=== PATIENT | male | born 1960 | race Caucasian/White ===

== ENCOUNTER 2019-08-31 13:43 | Outpatient (CLI) | payer OTHER, SELFPAY ==
--- NOTE | ~2019-08-31 | CT_ITS ---
EXAMINATION:CT lung screening DATE: 08/31/2019 14:06 INDICATION: Personal history of tobacco dependence. Smoker who quit in 2018 with 30 pack year history . TECHNIQUE: Computed tomography (CT) of the chest was performed without intravenous contrast. Automate d exposure control and iterative reconstruction technique were employed. The dose-length product (DLP ) was 88.54 mGy-cm. COMPARISON: Chest CT 03/08/2018 FINDINGS: There are reticular opacities, groundglass opacities, and nodules measuring up to 4 mm in t he upper lobes without change, consistent with scarring. A calcified left lung nodule is consistent w ith old granulomatous disease. No pleural effusion. The heart size is normal. No pericardial effusion . There is mild thoracic spondylosis. There is mild chronic anterior wedging of T10 and T11 vertebral bodies. IMPRESSION: 1. Lung-RADS category 2: Benign appearance or behavior. Continue annual screening with noncontrast lo w-dose chest CT in 12 months. Reviewed, dictated and finalized at location A. 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 Lung-RADS category 2: Benign appearance or behavior. Continue annual screeni ng with noncontrast low-dose chest CT in 12 months.
== END 2019-08-31 13:44 | disposition home or self-care (01) ==
LOC: ANHIMG 13:46
PROVIDERS: PCP Internal Medicine; Visit Provider Internal Medicine
DX: Z12.2 Encounter for screening for malignant neoplasm of respiratory organs (principal); Z87.891 Personal history of nicotine dependence
CPT/HCPCS: G0297

== ENCOUNTER → 2021-02-11 08:57 | Outpatient (CLI) | payer OTHER, SELFPAY ==
--- NOTE | ~2021-02-11 | CT_ITS ---
EXAMINATION: CT lung screening DATE: 02/11/2021 09:31 INDICATION: Personal history of tobacco dependence TECHNIQUE: Computed tomography (CT) of the chest was performed without intravenous contrast. The dose -length product was 120.59 mGy-cm. Automated exposure control and iterative reconstruction technique were employed. COMPARISON: CT dated 08/31/2019 FINDINGS: No thoracic lymphadenopathy. Heart size normal. Small hiatal hernia. No significant pleural or pericardial effusion. The upper abdomen is unremarkable. Stable scattered predominantly upper lob e nodules with areas of reticular nodularity. Pulmonary nodules measure 4 mm or less. No new pulmonar y nodules or masses. Mild thoracic spondylosis with scoliosis. Anterior wedging of T10 and T11. IMPRESSION: 1. Lung-RADS category 2: Benign appearance or behavior. Continue annual screening with noncontrast lo w-dose chest CT in 12 months. Reviewed, dictated and finalized at location A. IMPRESSION: 1. Lung-RADS category 2: Benign appearance or behavior. Continue annual screeni ng with noncontrast low-dose chest CT in 12 months.
== END ==
PROVIDERS: PCP Internal Medicine; Visit Provider Internal Medicine
DX: Z87.891 Personal history of nicotine dependence (principal)
CPT/HCPCS: 71271

== ENCOUNTER → 2022-02-12 10:42 | Outpatient (CLI) | payer OTHER, SELFPAY ==
--- NOTE | ~2022-02-12 | CT_ITS ---
EXAMINATION: CT lung screening DATE: 02/12/2022 10:58 INDICATION: Personal history of tobacco dependence TECHNIQUE: Computed tomography (CT) of the chest was performed without intravenous contrast. The dose -length product was 107.69 mGy-cm. COMPARISON: CT dated 02/11/2021 FINDINGS: Heart size normal. No thoracic lymphadenopathy. No significant pleural or pericardial effus ion. Upper abdomen is unremarkable. Mild thoracic spondylosis. There are multiple bilateral predominantly upper lobe nodules measuring 4 mm or less without signific ant change from prior examination allowing for differences of technique. There is emphysema. There ar e stable groundglass opacities in the right upper lobe. No endobronchial lesions. No pneumothorax. No acute osseous abnormality. IMPRESSION: 1. Lung-RADS category 2: Benign appearance or behavior. Continue annual screening with noncontrast lo w-dose chest CT in 12 months. Reviewed, dictated and finalized at location L. IMPRESSION: 1. Lung-RADS category 2: Benign appearance or behavior. Continue annual screeni ng with noncontrast low-dose chest CT in 12 months.
== END ==
PROVIDERS: PCP Internal Medicine; Visit Provider Internal Medicine
DX: Z12.2 Encounter for screening for malignant neoplasm of respiratory organs (principal); Z87.891 Personal history of nicotine dependence
CPT/HCPCS: 71271

== ENCOUNTER 2022-09-11 00:29 | Day surgery (SDC) | payer OTHER, SELFPAY ==
[2022-09-02 13:36] VITALS: BMI 24.4
--- NOTE | 2022-09-03 07:34 | P.HP_ITS ---
History of Present Illness History of Present Illness Consent: Risks, benefits, and alternatives have been discussed and questions answered. Patient agrees to proceed with procedure. Chief complaint: hx colon polyps Narrative: Sebastián Leger is a 62 year old male Who is known to have a chronic PSA elevation dating back until at least April 2021. We had multiple discussions about further evaluation with a prostate biopsy but he has been reluctant to proceed until now. He is agreeable to do this at the time of upcoming planned colonoscopy. He is aware of the risk of a prostate biopsy including, but not limited to, postoperative hematuria and rectal bleeding, febrile urinary tract infections and potential need for additional biopsies in the future. Review of Systems Cardiovascular: Cardiovascular: Denies chest pain, Denies lightheadedness, Denies palpitations and Denies dyspnea Respiratory: Respiratory: Denies dyspnea Gastrointestinal: Gastrointestinal: Denies diarrhea, Denies nausea and Denies vomiting Genitourinary: Genitourinary: Denies hematuria and Denies dysuria Endocrine: Endocrine: Denies palpitations [facility] Past Medical History Medical History COVID-19 vaccine series completed Diastasis recti Hyperlipidemia Social History Social History Smoking packs per day: 1 Smoking cigarettes per day: 20.0 Years smoked: 30 Smoking pack-years: 30.00 Smoking status: Never smoker Tobacco type: cigarettes Second hand tobacco smoke exposure: Yes Smoking end date: 09/17/20 Alcohol intake: current Drinks per week: 2 Substance use: current Substance use type: marijuana Last use: recreational Living arrangements: with family Spiritual care concerns: No Meds Home Medications and Allergies Home Medications Medication Instructions Recorded Confirmed Type atorvastatin 80 mg tablet 80 mg PO DAILY #90 tabs 07/22/22 09/02/22 Rx Allergies Allergy/AdvReac Type Severity Reaction Status Date / Time No Known Allergies Allergy Verified 01/29/22 11:26 Exam Const: General: no acute distress Resp: Effort & Inspection: normal respiratory effort GI: Inspection: non-distended GI Palp: No abdominal tenderness and No Guarding due to palpation present (GI) Auscultation: normal bowel sounds Assessment and Plan Assessment and plan (1) Abnormal PSA: Code(s): R97.20 - Elevated prostate specific antigen [PSA] Status: Acute Assessment and Plan: * Transrectal ultrasound of prostate with ultrasound guided biopsy
--- NOTE | 2022-09-10 14:02 | PM.HPGS ---
History of Present Illness History of Present Illness Consent: Risks, benefits, and alternatives have been discussed and questions answered. Patient agrees to proceed with procedure. Chief complaint: hx colon polyps Narrative: Sebastián Leger is a 62 year old male Referred for colon cancer screening. About 10 years ago he had 6 polyps removed. Review of Systems Review of Systems: All systems reviewed & are unremarkable except as noted in HPI and below PMFSH Past Medical History Medical History COVID-19 vaccine series completed Diastasis recti Hyperlipidemia Social History Social History Smoking packs per day: 1 Smoking cigarettes per day: 20.0 Years smoked: 30 Smoking pack-years: 30.00 Smoking status: Never smoker Tobacco type: cigarettes Second hand tobacco smoke exposure: Yes Smoking end date: 09/17/20 Alcohol intake: current Drinks per week: 2 Substance use: current Substance use type: marijuana Last use: recreational Living arrangements: with family Spiritual care concerns: No Meds Home Medications and Allergies Home Medications Medication Instructions Recorded Confirmed Type atorvastatin 80 mg tablet 80 mg PO DAILY #90 tabs 07/22/22 09/11/22 Rx Allergies Allergy/AdvReac Type Severity Reaction Status Date / Time No Known Allergies Allergy Verified 09/11/22 06:24 Exam Const: General: alert Orientation/consciousness: patient oriented x3 Resp: Auscultation: clear to auscultation bilaterally Cardio: Rhythm: regular rhythm GI: GI Palp: Yes Soft to palpation and No Tenderness to palpation present (GI) Neuro: General: patient oriented x3 Assessment and Plan Assessment and plan (1) Encounter for screening colonoscopy: Code(s): Z12.11 - Encounter for screening for malignant neoplasm of colon Status: Acute Assessment and Plan: Colonoscopy with possible biopsy or polypectomy or cautery or injection of substances.
[2022-09-11 06:15] VITALS: BP 124/91; PULSE 77; RESP 18; TEMP 36.6; O2SAT 98; BMI 24.8
--- NOTE | 2022-09-11 06:33 | WPDHPUPDATE1 ---
History and Physical Update Update Date/Time: 09/11/22 06:33 History and Physical has been reviewed, including an updated exam of the patient. There are NO changes in the patient's condition. Risks, benefits, and alternatives have been discussed and questions answered. Patient agrees to proceed with procedure.
[2022-09-11] MEDS: LACTATED RINGERS 1,000 ML 150 ML IV CONT (06:34)
--- NOTE | 2022-09-11 06:45 | P.PNAN_ITS ---
Anes - Initial Pre Proc Eval Procedure: Operation Date: 09/11/22 07:30 Proposed Procedures p Colonoscopy - Ponce Romero MD s Prostate Biopsy - Cody Banks MD Date/Time: 09/11/22 06:45 Surgeon: Ponce Romero MD Pre Op Diagnosis: hx colon polyps Patient Data Age: 62 Gender: M Height: 1.83 m Weight: 83.1 kg Last Vital Signs Temp 36.6 C 09/11/22 06:15 Pulse 77 09/11/22 06:15 Resp 18 09/11/22 06:15 BP 124/91 H 09/11/22 06:15 Pulse Ox 98 09/11/22 06:15 O2 Del Method Room Air 09/11/22 06:15 Allergies Allergy/AdvReac Type Severity Reaction Status Date / Time No Known Allergies Allergy Verified 09/11/22 06:24 Home Medications Medication Instructions Recorded Confirmed Type atorvastatin 80 mg tablet 80 mg PO DAILY #90 tabs 07/22/22 09/11/22 Rx Patient hx anesthesia problems: none Family hx anesthesia problems: none Results Review: All pre-operative results and documents have been reviewed as part of the pre- operative evaluation. [facility] Past Medical History Medical History COVID-19 vaccine series completed Diastasis recti Hyperlipidemia Social History Social History Smoking packs per day: 1 Smoking cigarettes per day: 20.0 Years smoked: 30 Smoking pack-years: 30.00 Smoking status: Never smoker Tobacco type: cigarettes Second hand tobacco smoke exposure: Yes Smoking end date: 09/17/20 Alcohol intake: current Drinks per week: 2 Substance use: current Substance use type: marijuana Last use: recreational Living arrangements: with family Spiritual care concerns: No Anes - Eval Final PreProcedure Day of Procedure 09/11/22 06:45 Patient weight: normal Heart: regular rate and rhythm Lungs: clear to auscultation and normal air movement Airway: Mallampati scale class II Neurological: alert and oriented Last oral intake: >/= 8 hours ASA classification: III Emergent: no Anesthetic plan: proceed Anesthesia type and monitoring: general GIVS and standard monitoring Results Review: All pre-operative results and documents have been reviewed as part of the pre- operative evaluation. Informed Consent: The patient's anesthetic plan and its attendant risks and benefits were discussed with the patient/family/POA. Questions were solicited and answers provided to the satisfaction of the patient/family/POA.
--- NOTE | 2022-09-11 07:44 | W.PM.PROC2 ---
Procedure Note - Detailed Date of Procedure 09/11/22 Pre-op Diagnosis Elevated PSA Post-op Diagnosis Same Procedure Performed Transrectal ultrasound and ultrasound guided biopsy of prostate Surgeon Cody Banks MD Anesthesia MAC Description of Procedure The patient was place in a left lateral position after administration of systemic sedation by the anesthesia department. Transrectal ultrasound of the prostate is undertaken at 6.0Hz. The prostate capsule is intact and the tissue has a normal echo texture. There is a small median lobe and minimal PVR in the bladder. The seminal vesicles have a normal appearance ultrasonically. The prostate measured 36.7gm in size. Using ultrasound guidance a total of 12 biopsy cores are obtained. The ultrasound probe was removed and the patient was taken to the recovery room in good condition. Drains No Packing No Pathology Yes
--- NOTE | 2022-09-11 07:48 | SUR.OPER ---
Second time out called with Dr. Banks after colonoscopy was finished.
[2022-09-11 07:57] VITALS: BP 102/74; PULSE 98; RESP 14; O2SAT 91
[2022-09-11 08:07] VITALS: BP 103/72; PULSE 83; RESP 13; O2SAT 92
[2022-09-11 08:17] VITALS: BP 115/87; PULSE 73; RESP 19; O2SAT 96
--- NOTE | 2022-09-11 10:04 | SUR.OPER ---
Prostate biopsies with Ultrasaound to follow colonoscopy in Endo Procedure Room 1. No instrument or sponge count required.
== END 2022-09-11 08:31 | disposition home or self-care (01) ==
PROVIDERS: Urology; PCP Internal Medicine; Visit Provider Internal Medicine Gastroenterology
PROC: 0DJD8ZZ Inspection of Lower Intestinal Tract, Via Natural or Artificial Opening Endoscopic (ICD-10-PCS; CPT 45378; principal; 2022-09-11 07:30)
PROC: (CPT 55700; 2022-09-11 07:30)
DX: Z12.11 Encounter for screening for malignant neoplasm of colon (principal); K57.30 Diverticulosis of large intestine without perforation or abscess without bleeding; Z86.010 Personal history of colon polyps; R97.20 Elevated prostate specific antigen [PSA]; N41.9 Inflammatory disease of prostate, unspecified; E78.5 Hyperlipidemia, unspecified; Z87.891 Personal history of nicotine dependence; F12.90 Cannabis use, unspecified, uncomplicated
CPT/HCPCS: 45378; 55700; 76942; G0416; J0696; J7120

== ENCOUNTER → 2022-09-19 09:43 | Outpatient (CLI) | payer OTHER, SELFPAY ==
--- NOTE | ~2022-09-19 | US_ITS ---
EXAMINATION: US carotid duplex BI DATE: 09/19/2022 10:14 INDICATION: Tinnitus TECHNIQUE: Grayscale, color Doppler, and pulsed Doppler images of the cervical carotid arteries were obtained. The degree of vessel stenosis is placed in one of the following categories: normal, <50%, 5 0-69%, >=70% but less than near-occlusion, near-occlusion, or total occlusion. Note that percent sten osis relative to normal distal artery lumen diameter is indirectly measured from velocity measurement s as described by Mik, et al. Radiology 2003; 229:340-346. Notes: Normal: Peak systolic velocity <125 centimeters/sec and no plaque <50%. Peak systolic velocity <125 ( EDV <40; ICA/CCA PSV ratio <2.0; used these factors only a tandem lesions or low cardiac output or co ntralateral disease) 50-69 %: PSV 125-230 (EDV 40-100; ratio 2-4) >= 70% but less than near occlusion: PSV greater than 230 (EDV > 100; ratio> 4.0) Near Occlusion: PSV that is variable; markedly narrowed lumen Occlusion: Absent flow on color/spectral Doppler and no lumen on parham scale. COMPARISON: None. FINDINGS: RIGHT: The right common carotid artery (CCA) peak systolic velocity (PSV) is 83 cm/s. The right internal car otid artery (ICA) PSV is 68 cm/s. The right ICA end-diastolic velocity (EDV) is 17 cm/s. The right IC A/CCA PSV ratio is 0.9. The external carotid artery (ECA) PSV is 71 cm/s. There is antegrade flow in the right vertebral artery. LEFT: The left CCA PSV is 77 cm/s. The left ICA PSV is 73 cm/s. The left ICA EDV is 26 cm/s. The left ICA/C CA PSV ratio is 1. The ECA PSV is 73 cm/s. There is antegrade flow in the left vertebral artery. IMPRESSION: 1. Less than 50% stenosis in the right internal carotid artery by sonographic criteria. 2. Less than 50% stenosis in the left internal carotid artery by sonographic criteria. Reviewed, dictated and finalized at location B. SHIP CLERK IMPRESSION: 1. Less than 50% stenosis in the right internal carotid artery by sonographic almaz joyce. 2. Less than 50% stenosis in the left internal carotid artery by sonographic jaky johnson.
== END ==
PROVIDERS: PCP Nurse Practitioner Family; Visit Provider Nurse Practitioner Family
DX: H93.A9 Pulsatile tinnitus, unspecified ear (principal); I65.23 Occlusion and stenosis of bilateral carotid arteries
CPT/HCPCS: 93880